=== PATIENT | female | born 1955 | race African-American/Black ===

== ENCOUNTER 2016-11-04 20:30 | Emergency (ER) | payer OTHER, SELFPAY ==
[2016-11-04] MEDS ORDERED: Cephalexin 500 MG CAP ONE (21:08)
== END 2016-11-04 21:15 | disposition home or self-care (01) ==
LOC: MADERS 20:30
DX: B35.3 Tinea pedis (principal); Z79.899 Other long term (current) drug therapy
CPT/HCPCS: 99283

== ENCOUNTER 2017-11-07 13:28 | Emergency (ER) | payer BC, OTHER ==
[2017-11-07 14:43] LABS: ALT (SGPT) 19 U/L (8-55); AST (SGOT) 22 U/L (5-34); Alkaline Phosphatase 74 U/L (40-150); Anion Gap 14 mmol/L (10-20); BUN (Urea Nitrogen) 13 mg/dL (9.8-20.1); Bilirubin, Total 0.3 mg/dL (0.2-1.2); Calc. Creatinine Clearance 0 mL/min (70-130); Calcium 10.3 mg/dL (7.8-10.44); Carbon Dioxide 25 mmol/L (22-29); Chloride 109 mmol/L (98-107); Estimated GFR-MDRD 79; Globulin 2.8 g/dL (2.4-3.5); Glucose 86 mg/dL (70-105); Potassium 4.4 mmol/L (3.5-5.1); Protein, Total 6.8 g/dL (6.0-8.3); Sodium 144 mmol/L (136-145)
[2017-11-07 14:46] LABS: %Lymphocytes 37.7 % (21.0-51.0); %Neutrophils 49.4 % (42.0-75.0); Hemoglobin 12.4 g/dL (12.0-16.0); Mean Corpuscular HGB CONC 33.1 g/dL (32.0-36.0); Mean Corpuscular Hemoglobin 28.1 pg (27.0-31.0); Mean Corpuscular Volume 84.8 fL (81.0-99.0); Platelet Count 205 thou/uL (130-400); RBC Distribution Width 14.2 % (11.5-14.5); Red Blood Cell (RBC) Count 4.43 mill/uL (4.20-5.40); White Blood Cell (WBC) Count 5.7 thou/uL (4.8-10.8)
[2017-11-07 14:47] LABS: #Basophils 0.1 thou/uL (0.0-0.2); #Eosinphils 0.2 thou/uL (0.0-0.7); #Lymphocytes 2.2 thou/uL (1.20-3.40); #Monocytes 0.2 thou/uL (0.11-0.59); #Neutrophils 2.8 thou/uL (1.40-6.50); %Basophils 1.9 % (0.0-1.0); %Eosinophils 3.2 % (0.0-10.0); %Monocytes 7.9 % (0.0-10.0)
--- NOTE | 2017-11-07 15:33 | RAD ---
RADIOGRAPH CHEST 2 VIEWS: HISTORY: 62-year-old female with dyspnea. FINDINGS: There is no air space density, pulmonary edema, pleural effusion, pneumothorax, or cardiomegaly. IMPRESSION: No acute cardiopulmonary findings. jn [] POS: [facility]
== END 2017-11-07 15:25 | disposition home or self-care (01) ==
LOC: MADERS 13:28
DX: J20.9 Acute bronchitis, unspecified (principal); I10 Essential (primary) hypertension
CPT/HCPCS: 36415; 71046; 80053; 85025; 87040; 99283

== ENCOUNTER 2018-10-11 08:48 | Outpatient (CLI) | payer BC ==
--- NOTE | 2018-10-11 10:19 | ULT ---
Pelvic sonogram transabdominal and transvaginal imaging HISTORY: Postmenopausal bleeding. FINDINGS: Urinary bladder is unremarkable. Uterus has a heterogeneous echotexture and is 8.1 cm lengt h. Endometrium is 0.8 cm. Within the anterior fundal myometrium, a lobular hypoechoic mass is 3.1 x 2.1 x 1.9 cm greatest diameters. No free fluid is apparent within the pelvis. Neither ovary is visualized with transabdominal or trans vaginal imaging. No adnexal mass is visible. IMPRESSION: Anterior fundal fibroid, 3.1 cm. No significant abnormalities otherwise demonstrated.
== END 2018-10-11 08:49 | disposition home or self-care (01) ==
LOC: MADULT 08:48
PROVIDERS: ATTEND Family Medicine
DX: N93.8 Other specified abnormal uterine and vaginal bleeding (principal); D25.9 Leiomyoma of uterus, unspecified
CPT/HCPCS: 76856

== ENCOUNTER 2019-07-27 08:25 | Outpatient (CLI) | payer BC ==
--- NOTE | 2019-07-27 09:31 | ULT ---
PELVIC ULTRASOUND: Date: 07/27/2019 HISTORY: Dysfunctional uterine bleeding. COMPARISON: 10/11/2018 study. FINDINGS: Real-time imaging of the pelvis was obtained transabdominally, as well as with an endovaginal probe. The uterus measures 7.0 cm in length. There is a 2.8 cm fibroid seen in the anterior portion of the f undus region. The endometrium is in the 9 mm range. There is a tiny amount of fluid density within th e endometrium. Neither the right nor left ovary are visualized. IMPRESSION: 1. Stable appearance to an anterior wall uterine fibroid. 2. Mildly thickened endometrium. POS: [facility]
== END 2019-07-27 08:26 | disposition home or self-care (01) ==
LOC: MADULT 08:25
PROVIDERS: ATTEND Family Medicine
DX: N93.8 Other specified abnormal uterine and vaginal bleeding (principal); R93.89 Abnormal findings on diagnostic imaging of other specified body structures
CPT/HCPCS: 76856

== ENCOUNTER 2020-04-14 19:18 | Emergency (ER) | payer BC ==
[2020-04-14] MEDS ORDERED: Acetaminophen 500 MG TAB ONE (19:47)
== END 2020-04-14 19:51 | disposition home or self-care (01) ==
LOC: MADERS 19:18
DX: M54.31 Sciatica, right side (principal); I10 Essential (primary) hypertension; Z79.899 Other long term (current) drug therapy
CPT/HCPCS: 99283

== ENCOUNTER 2020-09-12 17:48 | Outpatient (CLI) | payer BC | END 2020-09-12 17:49 | disposition home or self-care (01) | LOC: MADLAB 17:48 | PROVIDERS: ATTEND Family Medicine | DX: Z01.419 Encounter for gynecological examination (general) (routine) without abnormal findings (principal) | CPT/HCPCS: 88164; P3000 ==

== ENCOUNTER 2020-11-11 13:45 | Emergency (ER) | payer BC ==
[2020-11-11 15:22] LABS: #Basophils 0.1 thou/uL (0.0-0.2); #Eosinphils 0.1 thou/uL (0.0-0.7); #Lymphocytes 2.5 thou/uL (1.20-3.40); #Monocytes 0.5 thou/uL (0.11-0.59); #Neutrophils 2.2 thou/uL (1.40-6.50); %Basophils 1.4 % (0.0-1.0); %Eosinophils 2.4 % (0.0-10.0); %Lymphocytes 46.7 % (21.0-51.0); %Monocytes 9.1 % (0.0-10.0); %Neutrophils 40.4 % (42.0-75.0); Hemoglobin 11.9 g/dL (12.0-16.0); Mean Corpuscular HGB CONC 30.6 g/dL (32.0-36.0); Mean Corpuscular Hemoglobin 27.8 pg (27.0-31.0); Mean Corpuscular Volume 90.7 fL (78.0-98.0); Mean Platelet Volume 10.3 fL (7.4-10.4); Platelet Count 238 thou/uL (130-400); RBC Distribution Width 14.7 % (11.5-14.5); Red Blood Cell (RBC) Count 4.29 mill/uL (4.20-5.40); White Blood Cell (WBC) Count 5.4 thou/uL (4.8-10.8)
[2020-11-11 15:32] LABS: ALT (SGPT) 14 U/L (8-55); AST (SGOT) 15 U/L (5-34); Albumin 3.9 g/dL (3.4-4.8); Alkaline Phosphatase 82 U/L (40-110); Anion Gap 16 mmol/L (10-20); BUN (Urea Nitrogen) 16 mg/dL (9.8-20.1); Bilirubin, Total 0.4 mg/dL (0.2-1.2); Calc. Creatinine Clearance 0 mL/min (70-130); Calcium 9.4 mg/dL (7.8-10.44); Carbon Dioxide 27 mmol/L (23-31); Chloride 107 mmol/L (98-107); Globulin 2.8 g/dL (2.4-3.5); Glucose 93 mg/dL (80-115); Potassium 4.7 mmol/L (3.5-5.1); Protein, Total 6.7 g/dL (5.8-8.1); Sodium 145 mmol/L (136-145)
[2020-11-12 14:13] LABS: SARS-CoV-2 PCR by NAA Not Detected (NotDetected)
== END 2020-11-11 15:50 | disposition home or self-care (01) ==
LOC: MADERS 13:45
DX: B34.9 Viral infection, unspecified (principal); I10 Essential (primary) hypertension; Z20.822 Contact with and (suspected) exposure to COVID-19; Z79.899 Other long term (current) drug therapy
CPT/HCPCS: 36415; 80053; 85025; 99283; U0003; U0005

== ENCOUNTER 2021-07-11 17:02 | Outpatient (CLI) | payer BC | END 2021-07-11 17:03 | disposition home or self-care (01) | LOC: MADRAD 17:02 | PROVIDERS: ATTEND Family Medicine | DX: R06.02 Shortness of breath (principal) | CPT/HCPCS: 71046 ==

== ENCOUNTER 2023-03-17 18:41 | Emergency (ER) | payer SELFPAY | END 2023-03-17 19:29 | disposition home or self-care (01) | LOC: MADERS 18:41 | DX: R20.2 Paresthesia of skin (principal); I10 Essential (primary) hypertension | CPT/HCPCS: 99281 ==

== ENCOUNTER 2024-01-29 09:15 | Emergency (ER) | payer MEDICARE, OTHER, SELFPAY | END 2024-01-29 10:04 | disposition home or self-care (01) | LOC: MADERS 09:15 | DX: B34.9 Viral infection, unspecified (principal); I10 Essential (primary) hypertension | CPT/HCPCS: 99283 ==

== ENCOUNTER 2024-07-16 14:00 | Emergency (ER) | payer OTHER ==
[2024-07-16] MEDS ORDERED: Ketorolac Tromethamine 30 MG (1 mL) VIAL ONE (14:48)
[2024-07-16] MEDS ORDERED: Dexamethasone 10 MG/ML VIAL ONE (14:48)
== END 2024-07-16 15:26 | disposition home or self-care (01) ==
LOC: MADERS 14:00
DX: J06.9 Acute upper respiratory infection, unspecified (principal); I10 Essential (primary) hypertension; Z79.899 Other long term (current) drug therapy
CPT/HCPCS: 87428; 96372; 99283; J1100; J1885